=== PATIENT | female | born 1970 | race Native Hawaiian/Other Pacific Islander ===

== ENCOUNTER 2022-05-22 08:15 | Outpatient (CLI) | payer OTHER | END 2022-05-22 19:10 | disposition home or self-care (01) | LOC: MAMMO 08:15 | PROVIDERS: ATTEND Nurse Practitioner Family | DX: Z12.31 Encounter for screening mammogram for malignant neoplasm of breast (principal) ==

== ENCOUNTER 2022-06-28 12:43 | Outpatient (CLI) | payer OTHER | END 2022-06-28 22:26 | disposition home or self-care (01) | LOC: US 12:43 | PROVIDERS: ATTEND Nurse Practitioner Family | DX: R92.8 Other abnormal and inconclusive findings on diagnostic imaging of breast (principal) ==